=== PATIENT | male | born 1935 | race Caucasian/White ===

== ENCOUNTER 2022-03-17 06:06 | Day surgery (SDC) | payer OTHER, BC ==
[2022-03-17 06:37] VITALS: BMI 29.0
[2022-03-17] MEDS ORDERED: ERYTHROMYCIN 0.5% OPHTHALMIC OINTMENT 3.5 GM TUBE ONE (07:13)
[2022-03-17] MEDS ORDERED: ceFAZolin SODIUM 1 GM VIAL ONE (07:13)
[2022-03-17] MEDS ORDERED: POVIDONE-IODINE 5% OPHTHALMIC PREP 30 ML SOLUTION ONE (07:13)
[2022-03-17] MEDS ORDERED: TETRACAINE 0.5% OPHTH SOLN 2 ML BOTTLE ONE (07:13)
[2022-03-17] MEDS ORDERED: BUPIVACAINE HCL 50 ML ONE (07:14)
[2022-03-17] MEDS ORDERED: LIDOCAINE 1%/EPI 1:100000 (20 ML MULTI DOSE VIAL) ONE (07:14)
[2022-03-17] MEDS ORDERED: MIDAZOLAM HCL 2 MG/2 ML SINGLE DOSE VIAL ONE (07:45)
[2022-03-17] MEDS ORDERED: SUCCINYLCHOLINE CHLORIDE 200 MG/10 ML SYRINGE ONE (07:45)
[2022-03-17] MEDS ORDERED: PROPOFOL 20 ML ONE ×2 (07:45)
[2022-03-17] MEDS ORDERED: oxyCODONE HCL 5 MG TABLET PO PRN (08:55)
[2022-03-17] MEDS ORDERED: ONDANSETRON 4 MG/2 ML VIAL IVPUSH PRN (08:55)
[2022-03-17] MEDS ORDERED: ACETAMINOPHEN 325 MG TABLET (FP) PO PRN (08:55)
[2022-03-17 10:48] VITALS: TEMP 97.8
[2022-03-17 10:51] VITALS: BP 169/89; PULSE 54
== END 2022-03-17 10:20 | disposition home or self-care (01) ==
LOC: FASU 06:06
PROVIDERS: ATTEND Ophthalmology
PROC: 08BN0ZZ Excision of Right Upper Eyelid, Open Approach (ICD-10-PCS; 2022-03-17)
PROC: 08SQ0ZZ Reposition Right Lower Eyelid, Open Approach (ICD-10-PCS; principal; 2022-03-17 08:12)
DX: H02.521 Blepharophimosis right upper eyelid (principal); Z85.828 Personal history of other malignant neoplasm of skin
CPT/HCPCS: 94760